=== PATIENT | male | born 1990 ===

== ENCOUNTER 2021-11-02 11:41 | Emergency (ER) | payer SELFPAY ==
[~2021-11-02] VITALS: Ht 170.2 cm; Wt 65.7 kg
[2021-11-02] MEDS ORDERED: ZOFRAN4 MG/TAB PO (14:21)
[2021-11-02 14:36] VITALS: BP 119/68
== END 2021-11-02 14:52 | disposition home or self-care (01) | DRG 179 ==
LOC: ED 11:41
DX: U07.1 COVID-19 (principal); R11.10 Vomiting, unspecified; R50.9 Fever, unspecified; R05.9 Cough, unspecified